=== PATIENT | male | born 1965 | race Caucasian/White ===

== ENCOUNTER 2024-01-18 11:34 | Emergency (ER) | payer BC, SELFPAY ==
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
[2024-01-18 11:38] VITALS: BP 144/76; PULSE 93; RESP 18; TEMP 36.7; O2SAT 97
[2024-01-18] MEDS: MORPHINE SULFATE (*CRX) 4 MG/ML INJ IV PUSH (11:54)
[2024-01-18] MEDS: ONDANSETRON INJ 4 MG/2 ML VIAL IV PUSH (11:54)
[2024-01-18] MEDS: ceFAZolin 2 GM/D5W 50 ML 2 GM/50 ML BAG IVPB (12:24)
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
[2024-01-18 13:51] VITALS: BP 160/105; PULSE 86; RESP 17; O2SAT 98
== END 2024-01-18 14:35 | disposition short-term general hospital (02) ==
LOC: ANHED 12:00
PROVIDERS: Emergency Provider Preventive Medicine Aerospace Medicine
DX: S62.611B Displaced fracture of proximal phalanx of left index finger, initial encounter for open fracture (principal); S62.621B Displaced fracture of middle phalanx of left index finger, initial encounter for open fracture; W34.00XA Accidental discharge from unspecified firearms or gun, initial encounter
CPT/HCPCS: 73130; 96365; 96375; 99285; J0690; J2270; J2405